=== PATIENT | female | born 1990 | race Caucasian/White ===

== ENCOUNTER → 2019-08-02 10:01 | Outpatient (BNVA) | payer MEDICAID, SELFPAY | PROVIDERS: Family Provider Nurse Practitioner Family; PCP Nurse Practitioner Family; Visit Provider Nurse Practitioner Family | DX: N64.4 Mastodynia (principal); Z30.011 Encounter for initial prescription of contraceptive pills; Z23 Encounter for immunization | CPT/HCPCS: 80053; 81025; 85025 ==

== ENCOUNTER → 2020-01-13 12:00 | Outpatient (BNVA) | payer MEDICAID, SELFPAY | PROVIDERS: Family Provider Nurse Practitioner Family; PCP Nurse Practitioner Family; Visit Provider Nurse Practitioner Family | DX: M79.672 Pain in left foot (principal); S99.922A Unspecified injury of left foot, initial encounter; N93.9 Abnormal uterine and vaginal bleeding, unspecified; N87.1 Moderate cervical dysplasia; X58.XXXA Exposure to other specified factors, initial encounter | CPT/HCPCS: 73630; 81000; 81025; 85025 ==

== ENCOUNTER 2020-02-02 15:11 | Outpatient (CLI) | payer MEDICAID, SELFPAY ==
--- NOTE | 2020-02-02 15:45 | US_ITS ---
NOTE: Report was unsigned for reason: Order was edited. Original Signature date and time was: 02/02/20 @1624 WS: [id number] EXAM: TRANSABDOMINAL AND TRANSVAGINAL PELVIC SIDE DATE OF EXAMINATION: 02/02/2020, 1549 hours COMPARISON: None. HISTORY: 29 years old with 3 periods in the last month. LMP 01/27/2020. 1 para 1 FINDINGS: Uterus measures 7.72 cm in length, 4.5 cm in width, and 2.8 in depth. Cervix is closed 2.96 cm in length. Endometrial complex estimated at 2 mm in thickness on transvaginal imaging. Small nabothian cysts are seen in the cervix. Left ovary measures 2.5 x 1.8 x 1.3 cm. Color-flow and spectral Doppler demonstrates flow within the left ovary. Right ovary measures 2.8 x 1.4 x 2.3 cm. Color-flow and spectral Doppler demonstrates flow within the right ovary. [facility] US/US pelvic complete* [id number] OPINION: Normal appearance to the uterus. Endometrial stripe 2 mm in thickness. No mass within the uterus seen. Normal appearance to both ovaries.
== END 2020-02-02 15:12 | disposition home or self-care (01) ==
LOC: US 15:16
PROVIDERS: PCP Nurse Practitioner Family; Visit Provider Nurse Practitioner Family
DX: N93.9 Abnormal uterine and vaginal bleeding, unspecified (principal)
CPT/HCPCS: 76830; 76856

== ENCOUNTER 2020-02-02 16:05 | Emergency (ER) | payer MEDICAID, SELFPAY ==
[2020-02-02 16:18] VITALS: BP 112/68; PULSE 82; RESP 18; TEMP 37.3; O2SAT 100; BMI 21.9
--- NOTE | 2020-02-02 17:05 | ED_ITS ---
HPI - Abdominal Pain General: Chief Complaint: Abdominal Pain Stated Complaint: abd pain Time Seen by Provider: 02/02/20 17:05 History of Present Illness: HPI narrative: Patient is a 29-year-old female comes to the ED with abdominal pain. Patient is deaf and her friend that came with her is helping me communicate with patient to get history. MD elicited complaint: abdominal pain Onset (ago): week(s) (started 3 weeks ago, but for the last 4 days it is gotten more severe. Vomiting started along with nausea and more intense pain.) Pain Consistency: intermittent and colicky Location: Epigastric and RUQ Severity: severe Pain scale (0-10): 10 Quality: stabbing and sharp Radiation: none Migration to: no migration Exacerbating factors: eating Relieving factors: nothing Associated Symptoms: Reports nausea and vomiting (2-3 episodes in the last couple days. occurs after she eats); Denies chills, constipation, diarrhea, dysuria, fever(s), hematochezia and hematuria Related Data: Date of Last Menstrual Period: 12/27/19 Review of Systems Const: Denies: fever(s), chills or fatigue Eyes: Denies: change in vision or eye discomfort ENMT: Denies: throat pain, odynophagia, nasal discharge or nasal congestion Card: Denies: chest pain, palpitations, edema, swelling of feet/ankles, dyspnea on exertion or orthopnea Resp: Denies: dyspnea, productive cough or non-productive cough GI: Reports: abdominal pain (RUQ and epigastric), nausea and vomiting (2-3 episodes in the last couple days. occurs after she eats); Denies: diarrhea, constipation or hematochezia : Denies: flank pain, dysuria or hematuria Musc: Denies: neck pain, back pain or extremity swelling Skin/Breast: Denies: rash or new lesions Neuro: Denies: headache(s), numbness in extremities or weakness in extremities PFSH ED PFSH: Social History Smoking and tobacco status: former smoker Alcohol intake: never Lives independently: Yes Housing: House Marital status: Single Number of children: 1 Female Reproductive History: Date of last menstrual period: 12/27/19 Para: 1 Physical Exam Const: COMMON NORMALS: patient oriented x3, healthy appearing and alert EXAM LIMITATIONS: other limitations (Patient is deaf) 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; not comfortable (Patient appears to be uncomfortable due to abdominal pain.) HENMT: COMMON NORMALS: normocephalic HEAD & SCALP: normocephalic MOUTH: Normal oral and palatal mucosa present THROAT: posterior oropharynx normal and uvula midline Eye: COMMON NORMALS: Equal, round and reactive pupils present PUPIL: Yes Equal, round and reactive pupils present Neck/C-Spine: COMMON NORMALS: supple GENERAL: Yes normal visual inspection Resp: COMMON NORMALS: normal respiratory effort, No retractions, No use of accessory muscles and clear to auscultation bilaterally AUSCULTATION: clear to auscultation bilaterally Cardio: COMMON NORMALS: regular rate, regular rhythm, S1 normal heart sound present, S2 normal heart sound present, No gallops present (Cardio), No clicks present (Cardio), No murmurs present (Cardio) and Peripheral pulses 2+ throughout RATE: regular rate RHYTHM: regular rhythm HEART SOUNDS: S1 normal heart sound present and S2 normal heart sound present PERIPHERAL PULSES: Peripheral pulses 2+ throughout GI: COMMON NORMALS: Normal to inspection, nondistended, normoactive bowel sounds present, Soft to palpation and no masses PALPATION: Yes Soft to palpation and Yes Tenderness to palpation present (GI) Details: RUQ (positive limon sign) and other (epigastric pain) : COMMON NORMALS: Yes no CVA tenderness BLADDER/KIDNEY EXAM: Yes no CVA tenderness Back/Pelvis: COMMON NORMALS: no CVA tenderness Extremity: COMMON NORMALS: normal to inspection and no pedal edema Neuro: COMMON NORMALS: patient oriented x3 SENSORIUM/ORIENTATION: Yes alert GAIT: Yes Normal gait present Skin: COMMON NORMALS: no rashes or lesions noted GENERAL SKIN EXAM: no rashes or lesions noted and dry skin Course Vital Signs: Vital signs: Vital Signs Temperature 99.1 F 02/02/20 16:18 Pulse Rate 68 02/02/20 19:56 Respiratory Rate 18 02/02/20 19:56 Blood Pressure 109/68 02/02/20 19:56 Pulse Oximetry 98 02/02/20 19:56 MDM - Abdominal Pain MDM Narrative: Medical decision making narrative: Patient is a 29-year-old female comes to the ED with right upper quadrant abdominal pain nausea and vomit ing. Patient has positive Limon sign and right upper quadrant tenderness. WBC 7.6, CBC, CMP and UA were unremarkable. Lipase 21. hCG negative. Ultrasound of the gallbladder showed gallstones but no acute cholecystitis. Common bile duct normal. Patient's pain and nausea was controlled with IV pain meds, Reglan and fluids. Patient's nausea and pain greatly improved and she was able to take p.o. fluids and keep it down while here in the ED. I placed an order with case management for patient to have a referral to general surgery. Patient was diagnosed with biliary colic and gallstones. She was discharged with a prescription for Reglan and [place] for pain. She was told to do clear liquid diet and advance as tolerated. Return to ED precautions given. Follow- up with PCP in 7 to 10 days. Patient understood and agreed with plan. Lab Data: Attestation: I reviewed the patient's lab results. Labs: Lab Results 02/02/20 02/02/20 02/02/20 Range/Units 17:46 17:46 17:46 WBC 7.6 (4.0-10.0) 10^3/ uL RBC 4.44 (4.1-5.3) 10^6/u L Hgb 12.8 (11.5-15.3) g/dL Hct 39.0 (37.0-47.0) % MCV 87.8 (81-99) fL MCH 28.8 (28.0-34.0) pg MCHC 32.8 (30.0-36.0) g/dL RDW 12.9 (12.1-15.1) % Plt Count 278 (130-400) 10^3/c mm MPV 10.4 (7.4-10.4) fL Neut % (Auto) 67.1 % Lymph % (Auto) 26.8 % Mcpherson % (Auto) 4.1 % Eos % (Auto) 1.6 % Baso % (Auto) 0.3 % Neut # (Auto) 5.11 (1.8-7.7) 10^3/u L Lymph # (Auto) 2.0 (0.8-4.8) 10^3/u L Mcpherson # (Auto) 0.3 (0.2-0.9) 10^3/u L Eos # (Auto) 0.1 (0.0-0.8) 10^3/u L Baso # (Auto) 0.0 (0.0-0.1) 10^3/u L Nucleated RBC % (a uto) 0 % Nucleated RBCs # 0.0 /100WBC Sodium 139 (136-145) mmol/L Potassium 3.9 (3.5-5.1) mmol/L Chloride 105 (98-107) mmol/L Carbon Dioxide 24 (22-29) mmol/L Anion Gap 13.9 (5-19) BUN 8 (6-20) mg/dL Creatinine 0.8 (0.5-0.9) mg/dL GFR Calculation 84.8 L (90-130) mL/min Glucose 83 (65-115) mg/dL Calculated Osmolal ity 283 L (285-295) mOsm/k g Calcium 8.6 (8.5-10.5) mg/dL Magnesium 2.0 (1.7-2.3) mg/dL Total Bilirubin 0.4 (0.15-1.2) mg/dL AST 11 (0-32) U/L ALT 8 (0-33) U/L Alkaline Phosphata se 49 (35-105) IU/L Total Protein 7.3 (6.6-8.7) g/dL Albumin 4.1 (3.5-5.2) g/dL Globulin 3.2 (1.3-4.6) g/dL Lipase 21 (13-60) U/L HCG, Qual Negative (Negative) Urine Color (Yellow) Urine Appearance (CLEAR) Urine pH (5-7) Ur Specific Gravit y (1.005-1.030) Urine Protein (Negative) Urine Glucose (UA) (Normal) Urine Ketones (Negative) Urine Blood (Negative) Urine Nitrate (Negative) Urine Bilirubin (NEGATIVE) Urine Urobilinogen (Negative) mg/dL Ur Leukocyte Patricia ase (Negative) Urine RBC (0-2) /hpf Urine WBC (0-5) /hpf Ur Squamous Epith Cells (0-5) Amorphous Sediment Urine Bacteria (NONE) Urine Mucus 02/02/20 Range/Units 18:20 WBC (4.0-10.0) 10^3/ uL RBC (4.1-5.3) 10^6/u L Hgb (11.5-15.3) g/dL Hct (37.0-47.0) % MCV (81-99) fL MCH (28.0-34.0) pg MCHC (30.0-36.0) g/dL RDW (12.1-15.1) % Plt Count (130-400) 10^3/c mm MPV (7.4-10.4) fL Neut % (Auto) % Lymph % (Auto) % Mcpherson % (Auto) % Eos % (Auto) % Baso % (Auto) % Neut # (Auto) (1.8-7.7) 10^3/u L Lymph # (Auto) (0.8-4.8) 10^3/u L Mcpherson # (Auto) (0.2-0.9) 10^3/u L Eos # (Auto) (0.0-0.8) 10^3/u L Baso # (Auto) (0.0-0.1) 10^3/u L Nucleated RBC % (a uto) % Nucleated RBCs # /100WBC Sodium (136-145) mmol/L Potassium (3.5-5.1) mmol/L Chloride (98-107) mmol/L Carbon Dioxide (22-29) mmol/L Anion Gap (5-19) BUN (6-20) mg/dL Creatinine (0.5-0.9) mg/dL GFR Calculation (90-130) mL/min Glucose (65-115) mg/dL Calculated Osmolal ity (285-295) mOsm/k g Calcium (8.5-10.5) mg/dL Magnesium (1.7-2.3) mg/dL Total Bilirubin (0.15-1.2) mg/dL AST (0-32) U/L ALT (0-33) U/L Alkaline Phosphata se (35-105) IU/L Total Protein (6.6-8.7) g/dL Albumin (3.5-5.2) g/dL Globulin (1.3-4.6) g/dL Lipase (13-60) U/L HCG, Qual (Negative) Urine Color Yellow (Yellow) Urine Appearance Hazy A (CLEAR) Urine pH 5 (5-7) Ur Specific Gravit y 1.025 (1.005-1.030) Urine Protein Neg (Negative) Urine Glucose (UA) Norm (Normal) Urine Ketones 1+ H (Negative) Urine Blood Neg (Negative) Urine Nitrate Negative (Negative) Urine Bilirubin Neg (NEGATIVE) Urine Urobilinogen Norm (Negative) mg/dL Ur Leukocyte Patricia ase Negative (Negative) Urine RBC None (0-2) /hpf Urine WBC None (0-5) /hpf Ur Squamous Epith Cells 5-10 H (0-5) Amorphous Sediment Not Reportable Urine Bacteria Trace (NONE) Urine Mucus 2+ Imaging Data ^: US: Attestation: I personally reviewed and interpreted this imaging study as follows: My impression: Ultrasound gallbladder?prelim report gallstones seen and gallbladder wall thickness at the upper limits of normal. Common bile duct is patent and normal. Radiologist's impression: [address] [address] Ultrasound Report Signed Patient: Karen Geronimo Unit #: [id number] : 1990 Age/Sex: 29 / F ADM Date: 02/02/20 Loc: ER Room/Bed: Attending Dr: Ordering Provider/Ordering MD: Huey Juárez Date of Service: 02/02/20 Procedure(s): US gall bladder 52952 Accession Number(s): [id number] Report Number: [id number] WS: [id number] EXAM: RIGHT UPPER QUADRANT DATE OF EXAMINATION: 02/02/2020, 1744 hours COMPARISON: None. HISTORY: 29 years old with abdominal pain FINDINGS: Visualized pancreas is normal in appearance. Proximal inferior vena cava and aorta are normal in caliber. Liver echotexture is normal. Multiple hyperechoic masses seen within the liver felt to represent hemangiomas. There is one in the right lobe liver abutting the diaphragm which in my opinion has a mirror image artifact on the opposite side of the diaphragm. This is reproducible. I doubt that this represents a soft tissue solid mass lesion within the chest. The liver is normal in size estimated at 16 cm in length. Portal venous flow is demonstrated by color flow and spectral Doppler with flow toward the liver. Gallbladder is distended with multiple mobile stones. Common bile duct diameter is estimated at 0.4 mm in maximum transverse caliber. The right kidney is estimated at 10.5 x 4.6 x 3.8 cm in size. Cortical thickness and echotexture are normal. No mass or obstructive uropathy is seen. US/US gall bladder [id number] IMPRESSION: Multiple hyperechoic foci within the liver felt to represent hemangiomas. Mirror image artifact involving one of the hemangiomas abutting the diaphragm suggesting a mass lesion within the chest which is considered artifactual. Cholelithiasis without findings of cholecystitis. Common bile duct 4 mm transverse caliber. Dictated By: Romaine Valdez MD Signed By: Romaine Valdez MD Signed Date/Time: 02/02/201810 DD/ 56 Discharge Plan Discharge Patient Disposition: Home Clinical Impression: Biliary colic, Gall bladder stones Condition: Stable Prescriptions: New Reglan 10 mg tablet 10 mg PO Q4H PRN (Reason: nausea and vomiting) Qty: 30 RF: 0 No Action norgestimate-ethinyl estradiol [Tri-Sprintec (28)] 0.18/0.215/0.25 mg-35 mcg (28) tablet 1 tab PO DAILY 28 Days Qty: 28 RF: 11 Discharge Orders: Discharge Order (Routine); Ordered 02/02/20 Ordered By: Huey Juárez Referrals: Julissa Villalobos FNP-C [Primary Care Provider] - Patient Instructions: Biliary Colic (ED), Clear Liquid Diet (ED), Acute Nausea and Vomiting (ED) Activity Restrictions/Additional Instructions: Follow-up with primary care doctor in 5 to 7 days for reevaluation. Case management should be contacting you in the next several days to set up an appointment with general surgery. Start with a clear liquid diet and advance as tolerated. Take medications as prescribed. Return to the ER or your medical provider if condition worsens. Please read and understand discharge instructions. If any questions, please ask. Discharge Date/Time: 02/02/20 20:01 Coding Level of Care Code ED Clinical Assistant Professor for [facility] Exam Comprehensive
--- NOTE | 2020-02-02 17:24 | US_ITS ---
WS: [id number] EXAM: RIGHT UPPER QUADRANT DATE OF EXAMINATION: 02/02/2020, 1744 hours COMPARISON: None. HISTORY: 29 years old with abdominal pain FINDINGS: Visualized pancreas is normal in appearance. Proximal inferior vena cava and aorta are normal in caliber. Liver echotexture is normal. Multiple hyperechoic masses seen within the liver felt to represent jessica ngiomas. There is one in the right lobe liver abutting the diaphragm which in my opinion has a mirror image artifact on the opposite side of the diaphragm. This is reproducible. I doubt that this repres ents a soft tissue solid mass lesion within the chest. The liver is normal in size estimated at 16 cm in length. Portal venous flow is demonstrated by color flow and spectral Doppler with flow toward th e liver. Gallbladder is distended with multiple mobile stones. Common bile duct diameter is estimated at 0.4 mm in maximum transverse caliber. The right kidney is estimated at 10.5 x 4.6 x 3.8 cm in size. Cortical thickness and echotexture are normal. No mass or obstructive uropathy is seen. US/US gall bladder [id number] IMPRESSION: Multiple hyperechoic foci within the liver felt to represent hemangiomas. Mirro r image artifact involving one of the hemangiomas abutting the diaphragm sugges ting a mass lesion within the chest which is considered artifactual. Cholelithiasis without findings of cholecystitis. Common bile duct 4 mm transverse caliber.
[2020-02-02 17:54] LABS: Basophils % 0.3 %; Eosinophils # 0.1 10^3/uL (0.0-0.8); Eosinophils % 1.6 %; Hemoglobin 12.8 g/dL (11.5-15.3); Lymphocytes % 26.8 %; Mean Corpuscular HGB Conc 32.8 g/dL (30.0-36.0); Mean Corpuscular Hemoglobin 28.8 pg (28.0-34.0); Mean Corpuscular Volume 87.8 fL (81-99); Mean Platelet Volume 10.4 fL (7.4-10.4); Monocytes # 0.3 10^3/uL (0.2-0.9); Monocytes % 4.1 %; Neutrophils # 5.11 10^3/uL (1.8-7.7); Neutrophils % 67.1 %; Nucleated Red Blood Cells % 0 %; Platelet Count 278 10^3/cmm (130-400); Red Blood Count 4.44 10^6/uL (4.1-5.3); Red Cell Distribution Width 12.9 % (12.1-15.1); White Blood Count 7.6 10^3/uL (4.0-10.0)
[2020-02-02 18:20] VITALS: RESP 18
[2020-02-02 18:20] LABS: HCG, Serum Qual Negative (Negative)
[2020-02-02] MEDS: ondansetron 2 mg/ML SDV 2 mL 4 MG IVP (18:20)
[2020-02-02] MEDS: morphine 4 mg/mL SDV 1 mL IVP (18:20)
[2020-02-02 18:44] LABS: Alanine Aminotransferase 8 U/L (0-33); Albumin Level 4.1 g/dL (3.5-5.2); Alkaline Phosphatase 49 IU/L (35-105); Anion Gap 13.9 (5-19); Aspartate Amino Transferase 11 U/L (0-32); Blood Urea Nitrogen 8 mg/dL (6-20); Calcium 8.6 mg/dL (8.5-10.5); Carbon Dioxide 24 mmol/L (22-29); Chloride 105 mmol/L (98-107); Globulin 3.2 g/dL (1.3-4.6); Glomerular Filtration Rate 84.8 mL/min (90-130); Glucose 83 mg/dL (65-115); Lipase 21 U/L (13-60); Osmolality Calculated 283 mOsm/kg (285-295); Potassium 3.9 mmol/L (3.5-5.1); Sodium 139 mmol/L (136-145); Total Bilirubin 0.4 mg/dL (0.15-1.2); Total Protein 7.3 g/dL (6.6-8.7)
[2020-02-02] MEDS: metoclopramide 5 mg/mL SDV 2 mL 10 MG IVP (19:04)
[2020-02-02 19:05] VITALS: RESP 17; O2SAT 98
[2020-02-02] MEDS: HYDROmorphone 1 mg/mL INJ 1 mL 0.5 MG IVP (19:05)
[2020-02-02 19:08] LABS: Glucose Urine UA Norm (Normal); Protein Urine Neg (Negative); Specific Gravity, Urine 1.025 (1.005-1.030); Urine Color Yellow (Yellow); pH Urine 5 (5-7)
[2020-02-02] MEDS: sodium chloride 0.9% 1,000 ML 999 ML IV (19:08)
[2020-02-02 19:09] LABS: Bilirubin Urine Neg (NEGATIVE); Blood Urine Neg (Negative); Ketones Urine 1+ (Negative); Leukocyte Esterase Urine Negative (Negative); Nitrate Urine Negative (Negative); Urobilinogen Urine Norm (Negative)
[2020-02-02 19:10] LABS: Add Urine Culture? No; Bacteria Urine TRACE; Mucus Urine 2+; Urine Appearance Hazy (CLEAR)
[2020-02-02 19:56] VITALS: BP 109/68; PULSE 68; RESP 18; O2SAT 98
--- NOTE | 2020-02-09 10:19 | DCPLANNER ---
Addendum entered by Leah Russo 03/06/20 15:31: Dr. Aldridge office called director of casework department and stated that patient would need to be referred to Dr. Lerner. global transportation manager called [facility], spoke with Franki, gave clinic patients information. global transportation manager was told that patients information would be printed and reviewed. Clinic will call patient with appointment information. Original Note: global transportation manager had message to schedule a follow up appointment for patient with Dr. Goncalves. global transportation manager called the office of Dr. Goncalves, spoke with Dawit, gave clinic patients information. A follow up appointment was scheduled for Thursday, March 05, 2020 at 10:[address] Goncalves. Clinic will call patient with appointment information. global transportation manager faxed patients information to the clinic.
--- NOTE | 2020-03-14 10:30 | DCPLANNER ---
manager clinical called [facility] to confirm that a follow up appointment had been scheduled for patient. manager clinical spoke with Sarah, was told that clinic has tried to call patient several times, and has mailed patient a letter, waiting for patient to call clinic.
== END 2020-02-02 20:01 | disposition home or self-care (01) ==
PROVIDERS: Emergency Medicine; Emergency Provider Physician Assistant; PCP Nurse Practitioner Family
DX: K80.70 Calculus of gallbladder and bile duct without cholecystitis without obstruction (principal); Z87.891 Personal history of nicotine dependence
CPT/HCPCS: 12345; 36415; 76705; 80053; 81001; 83690; 83735; 84703; 85025; 96374; 96375; 99282; 99283; J1170; J2270; J2405; J2765; J7030

== ENCOUNTER → 2020-02-23 14:07 | Outpatient (BNVA) | payer MEDICAID, SELFPAY | PROVIDERS: PCP Nurse Practitioner Family; Visit Provider Obstetrics & Gynecology | DX: R87.613 High grade squamous intraepithelial lesion on cytologic smear of cervix (HGSIL) (principal); R87.619 Unspecified abnormal cytological findings in specimens from cervix uteri | CPT/HCPCS: 81025; 88305 ==

== ENCOUNTER 2020-02-27 16:00 | Emergency (ER) | payer MEDICAID, SELFPAY ==
[2020-02-27 16:08] VITALS: BP 111/79; PULSE 87; RESP 14; TEMP 36.7; O2SAT 100; BMI 20.5
--- NOTE | 2020-02-27 18:23 | US_ITS ---
WS: [id number] EXAM: RIGHT UPPER QUADRANT ULTRASOUND DATE OF EXAMINATION: 02/27/2020, 1852 hours COMPARISON: None. HISTORY: 29 years old with abdominal pain. FINDINGS: Visualized pancreas is normal in appearance. Proximal inferior vena cava and aorta are normal in caliber. Liver echotexture is normal. There is a hyperechoic mass 3.8 x 1.3 x 2.7 cm in size within the dome o f the liver most likely a small hemangioma. Liver is not enlarged. Second hyperechoic lesion in the l iver about 2.4 cm in size also suggesting a second site of hemangioma formation. Portal venous flow i s demonstrated by color flow and spectral Doppler with flow toward the liver. Gallbladder is normally distended. Multiple intraluminal stones are identified. No gallbladder wall t hickening. Common bile duct diameter is estimated at 0.3 mm in maximum transverse caliber. The right kidney is estimated at 8.7 x 4.7 x 4.1 cm in size. Cortical thickness and echotexture are n ormal. No mass or obstructive uropathy is seen. US/US gall bladder [id number] IMPRESSION: Cholelithiasis without findings of cholecystitis. Hemangiomas within the liver. Common bile duct 3 mm transverse caliber.
--- NOTE | 2020-02-27 18:26 | W.ED.ABDPA2 ---
HPI - Abdominal Pain General: Chief Complaint: Abdominal Pain Stated Complaint: N/V, ABDOMEN PAIN Time Seen by Provider: 02/27/20 18:17 Source: patient Mode of arrival: ambulatory Limitations: no limitations History of Present Illness: HPI narrative: 29-year-old female who states she been having abdominal pain over the last month. Patient is been told she has gallstones. She states over the last 2 to 3 days her pain is worsened and she has had severe vomiting. Patient denies any worsening improving factors. Her pain is currently an 8 out of 10. She states that eating makes her pain and vomiting worse. 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 Associated Symptoms: Reports nausea and vomiting; Denies chills, dysuria and fever(s) Related Data: Date of Last Menstrual Period: 12/27/19 Review of Systems Const: Denies: fever(s), chills, body aches or change in appetite Eyes: Denies: blurry vision or eye discomfort ENMT: Denies: throat pain or dental pain Card: Denies: chest pain Resp: Denies: dyspnea GI: Reports: abdominal pain, nausea and vomiting : Denies: dysuria Musc: Denies: neck pain or back pain Skin/Breast: Denies: rash Neuro: Denies: headache(s) Psych: Denies: depression Pal/Lymph: Denies: easy bruising All/Imm: Denies: urticaria PFSH ED PFSH: Family History Mother Hypertension Hyperlipidemia Father Hypertension Heart disease Hyperlipidemia Thyroid condition Grandfather Diabetes maternal Grandmother Diabetes maternal Stroke maternal Social History Smoking and tobacco status: former smoker Quit status (tobacco): has quit using tobacco Year quit tobacco: 2016 Alcohol intake: current Alcohol intake frequency: holidays/special occasions only Alcohol type: wine and hard liquor Lives independently: Yes Housing: House Marital status: Single Number of children: 1 Female Reproductive History: Date of last menstrual period: 12/27/19 Para: 1 Physical Exam Const: COMMON NORMALS: no acute distress, patient oriented x3 and healthy appearing HENMT: COMMON NORMALS: normocephalic and atraumatic HEAD & SCALP: normocephalic and atraumatic Eye: COMMON NORMALS: Equal, round and reactive pupils present and EOMs intact bilaterally PUPIL: Yes Equal, round and reactive pupils present Neck/C-Spine: COMMON NORMALS: full ROM and supple Chest: COMMONS NORMALS: normal inspection of the chest and normal palpation of entire chest wall Resp: COMMON NORMALS: normal respiratory effort, No retractions, No use of accessory muscles and clear to auscultation bilaterally AUSCULTATION: clear to auscultation bilaterally Cardio: COMMON NORMALS: regular rate, regular rhythm and No murmurs present (Cardio) RATE: regular rate RHYTHM: regular rhythm GI: COMMON NORMALS: Normal to inspection, nondistended, normoactive bowel sounds present, Soft to palpation and no masses PALPATION: Yes Soft to palpation and Yes Tenderness to palpation present (GI) (epigastric) Extremity: COMMON NORMALS: normal to inspection and full ROM Neuro: COMMON NORMALS: patient oriented x3, moves all extremities and no focal motor deficits Psych: COMMON NORMALS: mental status grossly normal, Normal thought process present and cooperative THOUGHT PROCESS: Normal thought process present Skin: COMMON NORMALS: no rashes or lesions noted and no wounds GENERAL SKIN EXAM: no rashes or lesions noted Course Vital Signs: Vital signs: Vital Signs Temperature 98.1 F 02/27/20 16:08 Pulse Rate 87 02/27/20 16:08 Respiratory Rate 61 H 02/27/20 20:00 Blood Pressure 105/78 02/27/20 20:00 Pulse Oximetry 99 02/27/20 20:00 MDM - Abdominal Pain MDM Narrative: Medical decision making narrative: Patient presents here with abdominal pain likely from cholelithiasis. Patient has no signs of cholecystitis. Patient's blood work here is normal and her pain is much improved. Will prescribe her pain meds along with nausea meds. She is to follow-up with Dr. Goncalves as scheduled next week and return to the ER if worsening. She understands and agrees to this plan. Lab Data: Labs: Lab Results 02/27/20 02/27/20 02/27/20 Range/Units 18:29 18:29 19:48 WBC 8.3 (4.0-10.0) 10^3/ uL RBC 4.67 (4.1-5.3) 10^6/u L Hgb 13.1 (11.5-15.3) g/dL Hct 40.1 (37.0-47.0) % MCV 85.9 (81-99) fL MCH 28.1 (28.0-34.0) pg MCHC 32.7 (30.0-36.0) g/dL RDW 12.2 (12.1-15.1) % Plt Count 309 (130-400) 10^3/c mm MPV 10.5 H (7.4-10.4) fL Neut % (Auto) 72.1 % Lymph % (Auto) 22.4 % [place] % (Auto) 4.1 % Eos % (Auto) 1.0 % Baso % (Auto) 0.2 % Neut # (Auto) 5.99 (1.8-7.7) 10^3/u L Lymph # (Auto) 1.9 (0.8-4.8) 10^3/u L [place] # (Auto) 0.3 (0.2-0.9) 10^3/u L Eos # (Auto) 0.1 (0.0-0.8) 10^3/u L Baso # (Auto) 0.0 (0.0-0.1) 10^3/u L Nucleated RBC % (a uto) 0 % Nucleated RBCs # 0.0 /100WBC Sodium 135 L (136-145) mmol/L Potassium 3.9 (3.5-5.1) mmol/L Chloride 101 (98-107) mmol/L Carbon Dioxide 21 L (22-29) mmol/L Anion Gap 16.9 (5-19) BUN 7 (6-20) mg/dL Creatinine 0.8 (0.5-0.9) mg/dL GFR Calculation 84.8 L (90-130) mL/min Glucose 82 (65-115) mg/dL Calculated Osmolal ity 275 L (285-295) mOsm/k g Calcium 8.9 (8.5-10.5) mg/dL Total Bilirubin 0.6 (0.15-1.2) mg/dL AST 16 (0-32) U/L ALT 10 (0-33) U/L Alkaline Phosphata se 56 (35-105) IU/L Total Protein 7.1 (6.6-8.7) g/dL Albumin 4.0 (3.5-5.2) g/dL Globulin 3.1 (1.3-4.6) g/dL Lipase 19 (13-60) U/L HCG, Qual Negative (Negative) Urine Color (Yellow) Urine Appearance (CLEAR) Urine pH (5-7) Ur Specific Gravit y (1.005-1.030) Urine Protein (Negative) Urine Glucose (UA) (Normal) Urine Ketones (Negative) Urine Blood (Negative) Urine Nitrate (Negative) Urine Bilirubin (Negative) Urine Urobilinogen (Negative) mg/dL Ur Leukocyte Patricia ase (Negative) Urine RBC (0-2) /hpf Urine WBC (0-5) /hpf Ur Squamous Epith Cells (0-5) /hpf Amorphous Sediment Urine Bacteria (NONE) /hpf 02/27/20 Range/Units 19:48 WBC (4.0-10.0) 10^3/ uL RBC (4.1-5.3) 10^6/u L Hgb (11.5-15.3) g/dL Hct (37.0-47.0) % MCV (81-99) fL MCH (28.0-34.0) pg MCHC (30.0-36.0) g/dL RDW (12.1-15.1) % Plt Count (130-400) 10^3/c mm MPV (7.4-10.4) fL Neut % (Auto) % Lymph % (Auto) % [place] % (Auto) % Eos % (Auto) % Baso % (Auto) % Neut # (Auto) (1.8-7.7) 10^3/u L Lymph # (Auto) (0.8-4.8) 10^3/u L [place] # (Auto) (0.2-0.9) 10^3/u L Eos # (Auto) (0.0-0.8) 10^3/u L Baso # (Auto) (0.0-0.1) 10^3/u L Nucleated RBC % (a uto) % Nucleated RBCs # /100WBC Sodium (136-145) mmol/L Potassium (3.5-5.1) mmol/L Chloride (98-107) mmol/L Carbon Dioxide (22-29) mmol/L Anion Gap (5-19) BUN (6-20) mg/dL Creatinine (0.5-0.9) mg/dL GFR Calculation (90-130) mL/min Glucose (65-115) mg/dL Calculated Osmolal ity (285-295) mOsm/k g Calcium (8.5-10.5) mg/dL Total Bilirubin (0.15-1.2) mg/dL AST (0-32) U/L ALT (0-33) U/L Alkaline Phosphata se (35-105) IU/L Total Protein (6.6-8.7) g/dL Albumin (3.5-5.2) g/dL Globulin (1.3-4.6) g/dL Lipase (13-60) U/L HCG, Qual (Negative) Urine Color Yellow (Yellow) Urine Appearance Sl hazy (CLEAR) Urine pH 5 (5-7) Ur Specific Gravit y 1.020 (1.005-1.030) Urine Protein Neg (Negative) Urine Glucose (UA) Norm (Normal) Urine Ketones 1+ H (Negative) Urine Blood Neg (Negative) Urine Nitrate Negative (Negative) Urine Bilirubin Neg (Negative) Urine Urobilinogen Norm (Negative) mg/dL Ur Leukocyte Patricia ase Negative (Negative) Urine RBC 0-4 H (0-2) /hpf Urine WBC 0-4 H (0-5) /hpf Ur Squamous Epith Cells 10-15 H (0-5) /hpf Amorphous Sediment Not Reportable Urine Bacteria 2+ H (NONE) /hpf Imaging Data ^: US: Radiologist's impression: [place] [address] Ultrasound Report Signed Patient: Karen Geronimo Unit #: [id number] : 1990 Age/Sex: 29 / F ADM Date: 02/27/20 Loc: ER Room/Bed: Attending Dr: Ordering Provider/Ordering MD: Humberto Boo MD Date of Service: 02/27/20 Procedure(s): US gall bladder 62083 Accession Number(s): [id number] Report Number: [id number] WS: [id number] EXAM: RIGHT UPPER QUADRANT ULTRASOUND DATE OF EXAMINATION: 02/27/2020, 1852 hours COMPARISON: None. HISTORY: 29 years old with abdominal pain. FINDINGS: Visualized pancreas is normal in appearance. Proximal inferior vena cava and aorta are normal in caliber. Liver echotexture is normal. There is a hyperechoic mass 3.8 x 1.3 x 2.7 cm in size within the dome of the liver most likely a small hemangioma. Liver is not enlarged. Second hyperechoic lesion in the liver about 2.4 cm in size also suggesting a second site of hemangioma formation. Portal venous flow is demonstrated by color flow and spectral Doppler with flow toward the liver. Gallbladder is normally distended. Multiple intraluminal stones are identified. No gallbladder wall thickening. Common bile duct diameter is estimated at 0.3 mm in maximum transverse caliber. The right kidney is estimated at 8.7 x 4.7 x 4.1 cm in size. Cortical thickness and echotexture are normal. No mass or obstructive uropathy is seen. US/US gall bladder 53070 IMPRESSION: Cholelithiasis without findings of cholecystitis. Hemangiomas within the liver. Common bile duct 3 mm transverse caliber. Discharge Plan Discharge Patient Disposition: Home Clinical Impression: Cholelithiasis Qualifiers: Cholelithiasis location: gallbladder Cholecystitis presence: without cholecystitis Biliary obstruction: without biliary obstruction Qualified Code(s): K80.20 - Calculus of gallbladder without cholecystitis without obstruction Condition: Stable Prescriptions: [place]quincy 5-325 mg tablet 1 tab PO Q6H PRN (Reason: pain) Qty: 14 RF: 0 ondansetron 4 mg tablet,disintegrating 4 mg PO Q6H PRN (Reason: nausea and vomiting) Qty: 14 RF: 0 No Action norgestimate-ethinyl estradiol [Tri-Sprintec (28)] 0.18/0.215/0.25 mg-35 mcg (28) tablet 1 tab PO DAILY 28 Days Qty: 28 RF: 11 metoclopramide HCl [Reglan] 10 mg tablet 10 mg PO Q4H PRN (Reason: nausea and vomiting) Qty: 30 RF: 0 hydrocodone-acetaminophen 5-325 mg tablet 1 tab PO Q4H PRN (Reason: Pain) RF: 0 ibuprofen 200 mg Tablet 400 - 800 mg PO PRN RF: 0 Discharge Orders: Discharge Order (Routine); Ordered 02/27/20 Ordered By: Humberto Boo Referrals: Matt Goncalves MD [Physician] - 1-3 days Julissa Villalobos FNP-C [Primary Care Provider] - Discharge Diet: Advance as tolerated Discharge Activity: Resume usual activity Patient Instructions: Biliary Colic (ED) Coding Level of Care Code ED Homicide [employer] Sergeant for Chg Fwd Exam Comprehensive
--- NOTE | 2020-02-27 18:34 | PC.NURSE ---
Pt arrives to ED with c/o epigastric abdominal pain that started 2 months ago and has progressively gotten worse. She rates her pain 10/10 and is guarding. SHe is a/ox4, c/o recent n/v, no diarrhea, bowel sounds normoactive in all quadrants. IV started, blood drawn, no other immediate needs identified, comfort measures offered, will continue to monitor.
[2020-02-27 18:41] LABS: Basophils % 0.2 %; Eosinophils # 0.1 10^3/uL (0.0-0.8); Hematocrit 40.1 % (37.0-47.0); Hemoglobin 13.1 g/dL (11.5-15.3); Lymphocytes # 1.9 10^3/uL (0.8-4.8); Lymphocytes % 22.4 %; Mean Corpuscular HGB Conc 32.7 g/dL (30.0-36.0); Mean Corpuscular Hemoglobin 28.1 pg (28.0-34.0); Mean Corpuscular Volume 85.9 fL (81-99); Mean Platelet Volume 10.5 fL (7.4-10.4); Monocytes # 0.3 10^3/uL (0.2-0.9); Monocytes % 4.1 %; Neutrophils # 5.99 10^3/uL (1.8-7.7); Neutrophils % 72.1 %; Nucleated Red Blood Cells % 0 %; Platelet Count 309 10^3/cmm (130-400); Red Blood Count 4.67 10^6/uL (4.1-5.3); Red Cell Distribution Width 12.2 % (12.1-15.1); White Blood Count 8.3 10^3/uL (4.0-10.0)
[2020-02-27] MEDS: sodium chloride 0.9% 1,000 ML 999 ML IV (18:44)
[2020-02-27] MEDS: diphenhydrAMINE 50 mg/mL SDV 1mL IVP (18:45)
[2020-02-27] MEDS: metoclopramide 5 mg/mL SDV 2 mL 10 MG IVP (18:45)
[2020-02-27 18:48] VITALS: RESP 18; O2SAT 99
[2020-02-27] MEDS: morphine 4 mg/mL SDV 1 mL IVP (18:48)
[2020-02-27 19:14] LABS: Alanine Aminotransferase 10 U/L (0-33); Alkaline Phosphatase 56 IU/L (35-105); Anion Gap 16.9 (5-19); Aspartate Amino Transferase 16 U/L (0-32); Blood Urea Nitrogen 7 mg/dL (6-20); Calcium 8.9 mg/dL (8.5-10.5); Carbon Dioxide 21 mmol/L (22-29); Chloride 101 mmol/L (98-107); Globulin 3.1 g/dL (1.3-4.6); Glomerular Filtration Rate 84.8 mL/min (90-130); Glucose 82 mg/dL (65-115); Lipase 19 U/L (13-60); Osmolality Calculated 275 mOsm/kg (285-295); Potassium 3.9 mmol/L (3.5-5.1); Sodium 135 mmol/L (136-145); Total Bilirubin 0.6 mg/dL (0.15-1.2); Total Protein 7.1 g/dL (6.6-8.7)
[2020-02-27 20:00] VITALS: BP 105/78; RESP 61; O2SAT 99
[2020-02-27 20:49] LABS: Add Urine Microscopic? YES; Bilirubin Urine Neg (Negative); Blood Urine Neg (Negative); Glucose Urine UA Norm (Normal); Ketones Urine 1+ (Negative); Leukocyte Esterase Urine Negative (Negative); Nitrate Urine Negative (Negative); Protein Urine Neg (Negative); Urine Appearance SL Hazy (CLEAR); Urine Color Yellow (Yellow); Urobilinogen Urine Norm (Negative); pH Urine 5 (5-7)
[2020-02-27 20:50] LABS: Add Urine Culture? Yes; Bacteria Urine 2+ /hpf; RBC Urine 0-4 /hpf (0-2); WBC Urine 0-4 /hpf (0-5)
[2020-02-27 20:55] LABS: HCG Qualitative Urine. Negative (Negative)
[2020-02-27 22:00] VITALS: BP 112/74; PULSE 64; RESP 14
--- NOTE | 2020-03-06 15:28 | DCPLANNER ---
Addendum entered by Leah Russo 03/06/20 15:30: this was wrote on the wrong visit for patient. Original Note: Dr. Aldridge office called case planner and was told that patient would need to be referred to Dr. Lerner. manager house called [facility], spoke with Franki, gave clinic patients information. manager house was told that patients information would be printed and reviewed. Clinic will call patient with appointment information.
== END 2020-02-27 22:02 | disposition home or self-care (01) ==
PROVIDERS: Emergency Provider Emergency Medicine; PCP Nurse Practitioner Family
DX: K80.20 Calculus of gallbladder without cholecystitis without obstruction (principal); Z87.891 Personal history of nicotine dependence
CPT/HCPCS: 12345; 76705; 80053; 81001; 81025; 83690; 85025; 87086; 96361; 96374; 96375; 99283; J1200; J2270; J2765; J7030

== ENCOUNTER → 2020-03-12 11:06 | Outpatient (BNVA) | payer MEDICAID, SELFPAY | PROVIDERS: PCP Nurse Practitioner Family; Visit Provider Nurse Practitioner | DX: Z11.59 Encounter for screening for other viral diseases (principal) | CPT/HCPCS: 87635 ==

== ENCOUNTER 2020-03-15 07:40 | Day surgery (SDC) | payer MEDICAID, SELFPAY ==
[2020-03-14 11:01] VITALS: BMI 21.9
[2020-03-15 07:58] VITALS: BP 118/82; PULSE 76; RESP 16; TEMP 36.3; O2SAT 97
[2020-03-15] MEDS: sodium chloride 0.9% 1,000 ML 30 ML IV (08:16)
--- NOTE | 2020-03-15 08:28 | ANES.PREANE2 ---
Pre-Anesthetic Assessment Pre-Anesthetic Assessment: Height/Weight: Height 1.52 m Weight 50.802 kg Temp Pulse Resp BP Pulse Ox 97.3 F L 76 16 118/82 97 03/15/20 07:58 03/15/20 07:58 03/15/20 07:58 03/15/20 07:58 03/15/20 07:58 Preop Diagnosis: gallstones Proposed Procedure: Operation Date: 03/15/20 09:10 Proposed Procedures p Laparoscopic Cholecystectomy(Not Applicable) - Matt Goncalves MD Familial anesthetic complications: none Last intake: Intake Last Liquid Date 03/14/20 Last Liquid Time 21:00 Last Solid Date 03/14/20 Last Solid Time 21:00 Social: Social History: No alcohol and No tobacco Exam: Pre-Anes Outpt Exam: alert, oriented x 3, clear to auscultation bilaterally and regular rate & rhythm Airway: Cervical ROM: WNL MP: 3 Dentition: Chipped and Other (rotted ) Anesthetic Plan: ASA status: 1 Anesthesia: General Risk of > 500 ml blood loss (7ml/kg in children): No Meds/Allergies Current Medications: Current Medications Generic Name Dose Route Start Last Admin Trade Name Freq PRN Reason Stop Dose Admin Sodium Chloride 1,000 mls @ 30 ml s/hr 03/15/20 07:45 03/15/20 08:16 Sodium Chloride 0.9% IV 03/16/20 07:44 30 mls/hr .Q24H ZARIA Administration PFSH Anesthesia PFSH: Family History Mother Hypertension Hyperlipidemia Father Hypertension Heart disease Hyperlipidemia Thyroid condition Grandfather Diabetes maternal Grandmother Diabetes maternal Stroke maternal Social History Smoking and tobacco status: former smoker Quit status (tobacco): has quit using tobacco Year quit tobacco: 2016 Alcohol intake: current Alcohol intake frequency: holidays/special occasions only Alcohol type: wine and hard liquor Lives independently: Yes Housing: House Marital status: Single Number of children: 1 Female Reproductive History: Date of last menstrual period: 12/27/19 Para: 1 Data Anesthesia Cardiac Studies: No Data to Display
[2020-03-15 08:41] LABS: OR HCG Qualitative Urine Negative (Negative)
--- NOTE | 2020-03-15 08:42 | W.PM.OPSUD ---
Surgery/Procedure H&P Update DATE OF PROCEDURE: March 15, 2020 DATE H&P PERFORMED: 03/05/20 H&P UPDATE INFORMATION: No changes to prior documentation PREOP DIAGNOSIS: gallstones PLANNED PROCEDURE: Operation Date: 03/15/20 09:10 Proposed Procedures p Laparoscopic Cholecystectomy(Not Applicable) - Matt Goncalves MD
[2020-03-15 08:58] LABS: Alanine Aminotransferase 17 U/L (0-33); Albumin Level 4.5 g/dL (3.5-5.2); Alkaline Phosphatase 59 IU/L (35-105); Aspartate Amino Transferase 20 U/L (0-32); Globulin 3.1 g/dL (1.3-4.6); Total Bilirubin 0.7 mg/dL (0.15-1.2); Total Protein 7.6 g/dL (6.6-8.7)
--- NOTE | 2020-03-15 11:19 | PM.OP ---
Operative Report Date of procedure: March 15, 2020 Pre-op Diagnosis: Symptomatic cholelithiasis. Post-op diagnosis: same Procedure Done: Laparoscopic cholecystectomy. Specimens removed/disposition: Gallbladder. Surgeon: Matt Goncalves Anesthesia: General Estimated blood loss (mL): 5 Complications: None. Condition: stable Disposition: PACU Procedure: The patient was brought to the Operating Room and was placed in a supine position on the Operating Room table. General endotracheal anesthesia was induced. The abdomen was prepped and draped in a sterile fashion. A small vertical incision was carried out in the inferior aspect of the umbilicus. Blunt dissection was carried out down to the fascia, which was grasped with a Roseann clamp. A stay suture of 0 Vicryl was placed on either side of the midline and the midline fascia was incised. The underlying peritoneum was opened bluntly and the Michael port was placed directly into the peritoneal cavity and was held in place with the inflatable balloon. The peritoneal cavity was insufflated with carbon dioxide. The laparoscope was used to inspect the abdominal cavity. No gross abnormalities were noted other than a very fine adhesion to the lower anterior abdominal wall. This was eventually taken down. A 5 millimeter port was placed in the epigastrium under direct vision. Two 5-millimeter ports were placed on the right side of the abdomen under direct vision. The gallbladder was grasped and was elevated. The patient had some adhesions to the fundus and infundibular region of the gallbladder which were taken down using blunt dissection with some cautery to maintain hemostasis. Blunt dissection and hydrodissection were carried out in the infundibular region of the gallbladder and the cystic duct and cystic artery were identified. The gallbladder was partially removed from the liver bed using cautery and the spatula to confirm the anatomy before the structures were clipped and divided. The gallbladder was then removed from the liver bed using cautery and the spatula. After the gallbladder had been removed from the liver bed, the laparoscope was moved to the epigastric port and the gallbladder was removed from the peritoneal cavity through the umbilical port site. The stay sutures of Vicryl were tied to each other at the umbilicus, closing the defect so that it was airtight. The perihepatic spaces were irrigated with saline and the liver bed was reinspected. No ongoing problems were seen. The remaining ports were removed from the abdominal wall and the pneumoperitoneum was evacuated. All skin incisions were closed using inverted interrupted sutures of 4-0 Vicryl. Benzoin and Steri-Strips were placed over the incisions and Band-Aids followed. The patient was taken to the Recovery Area in stable condition postoperatively.
[2020-03-15 11:37] VITALS: BP 126/86; PULSE 103; RESP 16; TEMP 36.8; O2SAT 100
[2020-03-15 11:40] VITALS: BP 127/80; PULSE 90; RESP 21; O2SAT 100
[2020-03-15 11:45] VITALS: BP 117/77; PULSE 83; RESP 20; O2SAT 99
[2020-03-15 11:50] VITALS: BP 108/76; PULSE 66; RESP 17; TEMP 36.6; O2SAT 98
[2020-03-15 12:02] VITALS: BP 108/70; PULSE 71; RESP 18; TEMP 36.6; O2SAT 98
[2020-03-15] MEDS: HYDROcodone-acetaminophen 5-325 mg Tablet 1 TAB PO (12:14)
--- NOTE | 2020-03-15 12:30 | ANE.PACU2 ---
Inpatient post-anesthesia follow up: Airway intact: Yes Vital signs: Temperature 97.8 F Pulse Rate 71 Respiratory Rate 18 Blood Pressure 108/70 Pulse Oximetry 98 Oxygen Delivery Me thod Room Air Oxygen Flow Rate 8 Fraction of Inspir ed Oxygen Hydration adequate: Yes Nausea and vomiting: No Pain level: 2 Mental status: Baseline
== END 2020-03-15 12:32 | disposition home or self-care (01) ==
PROVIDERS: Anesthesiology; PCP Nurse Practitioner Family; Visit Provider Surgery
PROC: 0FT44ZZ Resection of Gallbladder, Percutaneous Endoscopic Approach (ICD-10-PCS; CPT 47562; principal; 2020-03-15 09:10)
DX: K80.20 Calculus of gallbladder without cholecystitis without obstruction (principal); Z87.891 Personal history of nicotine dependence
CPT/HCPCS: 47562; 12345; 36415; 80076; 81025; 84703; 88304; 96365; J0131; J0690; J1100; J1885; J2405; J2704; J2710; J2765; J3010; J3490; J7030